=== PATIENT | male | born 1995 | race Caucasian/White ===

== ENCOUNTER 2016-04-14 23:02 | Emergency (ER) | payer MEDICAID ==
[~2016-04-14] VITALS: Wt 71.5 kg
[~2016-04-14 23:02] MED LIST: DOCU-144 PO; MAG-19 PO; OMEP20CA16 PO; OMEP40CA6 PO; POLY17PO6 PO; RANI150T9 PO; SUCR1TAB27 PO
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
--- NOTE | 2016-04-15 01:30 | RADRPT ---
PROCEDURE: Noncontrast CT Head. CLINICAL INDICATION: Pain. TECHNIQUE: Noncontrast CT of the head was obtained. The administered radiation dose was CTDI vol = 45 mGy, DLP = 720.2 mGy-cm. COMPARISON: No pertinent prior examinations were submitted for comparison. FINDINGS: The ventricles and sulci are within normal limits. There is no acute intracranial hemorrhage or ext ra-axial fluid collection. There is no mass effect. No midline shift is identified. There is no loss of rivera-white differentiation to suggest acute infarction. The orbits are within normal limits. The paranasal sinuses and mastoid air cells are without fluid. No destructive osseous lesion is identified. IMPRESSION: No acute findings. RPTAT: HIKT .Daniel Dillard MD, Date Time Electronically viewed and signed by .Daniel Dillard MD, on 04/15/2016 01:30 .T/
[2016-04-15 02:07] VITALS: BP 132/77; PULSE 78; RESP 20; TEMP 98
== END 2016-04-15 02:08 | disposition home or self-care (01) ==
LOC: FTE 23:02
DX: S09.90XA Unspecified injury of head, initial encounter (principal); R00.2 Palpitations; R51 Headache; Y04.0XXA Assault by unarmed brawl or fight, initial encounter; Z72.0 Tobacco use
CPT/HCPCS: 70450; 93005; Z7502

== ENCOUNTER 2016-05-14 14:55 | Emergency (ER) | payer MEDICAID ==
[~2016-05-14] VITALS: Ht 152.4 cm; Wt 74.5 kg
[2016-05-14 14:58] VITALS: Ht 152.4 cm; Wt 74.5 kg
[2016-05-14] MEDS ORDERED: TYL500 PO (16:56)
[2016-05-14] MEDS ORDERED: ALBU18HF INHALATION (16:56)
--- NOTE | 2016-05-14 16:58 | ERD ---
ER Documentation Chief Complaint Date/Time DATE: 05/14/16 TIME: 16:57 Chief Complaint HPI This 21-year-old male presents with a sensation of chest wall pain which is currently resolved. He also has a sensation of shortness of breath. An EEG report shows that he has been seen approximately 3 times at other hospitals for similar complaints of shortness of breath. Gives a history of asthma disease. He denies any current chest pain. He does have some mild problems with his breathing he states. Denies any fevers or recent URIs, vomiting, abdominal pain. Denies any calf swelling or additional symptoms. ROS All systems reviewed and are negative except as per history of present illness. Medications Home Meds Active Scripts Albuterol Sulfate* (Ventolin HFA*) 18 Gm Hfa.aer.ad, 2 PUFF INHALATION Q4H, #1 INHALER Prov:NERY POWELL MD 05/14/16 Acetaminophen* (Tylenol*) 500 Mg Tab, 500 MG PO Q4H Y for MILD PAIN LEVEL 1-3, # 20 TAB Prov:NERY POWELL MD 05/14/16 Omeprazole* (Omeprazole*) 40 Mg Capsule., 40 MG PO DAILY, #10 CAP Prov:MURIEL JUAREZ 03/14/16 Ranitidine Hcl* (Zantac*) 150 Mg Tablet, 150 MG PO BID, #60 TAB Prov:KIRK NARANJO 03/12/16 Sucralfate (Carafate) 1 Gm Tablet, 1 GM PO TID, #60 TAB Prov:KIRK NARANJO 03/12/16 Magaldrate/Simethicone* (Mylanta*) 355 Ml Susp, 30 ML PO QID Y for GASTROINTESTINAL UPSET, #1 BOTTLE Prov:ROSMERY HUTCHINS NP 02/21/16 Omeprazole* (Omeprazole*) 20 Mg Capsule., 20 MG PO DAILY, #30 Prov:ROSMERY HUTCHINS NP 02/21/16 Docusate Sodium* (Colace*) 100 Mg Capsule, 100 MG PO TID, #30 CAP Prov:ROSMERY HUTCHINS NP 02/21/16 Polyethylene Glycol* (Miralax*) 17 Gm Powd.pack, 17 GM PO DAILY, #7 Prov:ROSMERY HUTCHINS NP 02/21/16 Polyethylene Glycol* (Miralax*) 17 Gm Powd.pack, 17 GM PO DAILY, #7 Prov:JONNY KYA PA-C 02/01/16 Allergies Allergies: Coded Allergies: No Known Allergy (Unverified , 03/24/16) PMhx/Soc History of Surgery: No Anesthesia Reaction: No Hx Neurological Disorder: No Hx Respiratory Disorders: No Hx Cardiac Disorders: No Hx Psychiatric Problems: No Hx Miscellaneous Medical Probl: No Hx Alcohol Use: No Hx Substance Use: Yes (marijuana) Hx Tobacco Use: Yes Smoking Status: Unknown if ever smoked Physical Exam Vitals Vital Signs Date Time Temp Pulse Resp B/P Pulse Ox O2 Delivery O2 Flow Rate FiO2 05/14/16 14:58 97.2 76 20 134/75 99 Physical Exam Const: [] Alert, [id number], speaking complete sentences Head: Atraumatic Eyes: Normal Conjunctiva ENT: Normal External Ears, Nose and Mouth. Neck: Full range of motion..~ No meningismus. Resp: Clear to auscultation bilaterally. Slight forced wheeze. No rales or retractions. Cardio: Regular rate and rhythm, no murmurs Abd: Soft, non tender, non distended. Normal bowel sounds Skin: No petechiae or rashes Back: No midline or flank tenderness Ext: No cyanosis, or edema Neur: Awake and alert Psych: Normal Mood and Affect Procedures/MDM Patient presents with sensation of shortness of breath and mild wheezing on exam. Patient is otherwise healthy. Consideration of EKG and x-ray discussed with patient. 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 My suspicion for pneumonia, pulmonary embolism, abnormalities to be found on x-ray , or EKG are very low. Patient appears to have some mild wheezing. He will be treated empirically with Tylenol and Ventolin and further observation at home. The patient was stable with no new complaints during the ER course. Clinically, there is no current evidence to suggest meningitis, sepsis, acute abdomen, pneumonia, acute coronary syndrome, pulmonary embolism, or any other emergent condition appearing to require further evaluation or hospitalization. The patient should certainly return for any new or worsening symptoms per the aftercare instructions. They should otherwise follow-up with her primary care doctor for reevaluation this week. Departure Diagnosis: Primary Impression: Chest wall pain Condition: Stable Patient Instructions: Uri, Viral W/ Wheezing (Adult) Additional Instructions: Likely mild asthma from wheezing. Recheck for new or worsening symptoms or primary care doctor. NERY POWELL MD May 14, 2016 16:58
[2016-05-14 17:00] VITALS: RESP 18
== END 2016-05-14 17:13 | disposition home or self-care (01) ==
LOC: FTE 14:55
DX: R07.89 Other chest pain (principal); J45.901 Unspecified asthma with (acute) exacerbation
CPT/HCPCS: 99283

== ENCOUNTER 2018-04-26 00:21 | Emergency (ER) | payer MEDICAID, OTHER ==
[~2018-04-26] VITALS: Ht 180.3 cm; Wt 94.7 kg
[~2018-04-26 00:21] MED LIST changes: +ALBU18HF INHALATION; +RANI150T35 PO; -RANI150T9 PO; -SUCR1TAB27 PO; +SUCR1TAB35 PO; +TYL500 PO
[2018-04-26 00:35] VITALS: PULSE 80; Ht 180.3 cm; Wt 94.7 kg
--- NOTE | 2018-04-26 01:47 | ERD ---
ER Documentation Chief Complaint Chief Complaint CP, SOB x1 week, worse today. no cardiac hx HPI 23-year-old male who presents to emergency with chest pain and palpitations. The patient describes approximately 1 year of similar symptoms and he is followed up with a metal tank erector with negative workup including negative Holter negative echocardiogram. Remote drug abuse but none over the past 12 months. He states over the last 1 week he has had occasional shortness of breath and occasional palpitations and chest discomfort. He denies any chest pain currently. The patient was concerned and wanted further evaluation. He denies any pleuritic pain fevers chills or cough. ROS All systems reviewed and are negative except as per history of present illness. Medications Home Meds Active Scripts Ibuprofen* (Motrin*) 800 Mg Tab, 800 MG PO Q6H PRN for PAIN AND OR ELEVATED TEM P, #30 TAB Prov:KATERINE ASHLEY MD 04/26/18 Albuterol Sulfate* (Ventolin HFA*) 18 Gm Hfa.aer.ad, 2 PUFF INHALATION Q4H, #1 INHALER Prov:NERY POWELL MD 05/14/16 Acetaminophen* (Tylenol*) 500 Mg Tab, 500 MG PO Q4H PRN for MILD PAIN LEVEL 1-3, #20 TAB Prov:NERY POWELL MD 05/14/16 Omeprazole* (Omeprazole*) 40 Mg Capsule., 40 MG PO DAILY, #10 CAP Prov:MURIEL UJAREZ 03/14/16 Ranitidine Hcl* (Zantac*) 150 Mg Tablet, 150 MG PO BID, #60 TAB Prov:KIRK NARANJO 03/12/16 Sucralfate (Carafate) 1 Gm Tablet, 1 GM PO TID, #60 TAB Prov:KIRK NARANJO 03/12/16 Magaldrate/Simethicone* (Mylanta*) 355 Ml Susp, 30 ML PO QID PRN for GASTROINTESTINAL UPSET, #1 BOTTLE Prov:ROSMERY HUTCHINS NP 02/21/16 Omeprazole* (Omeprazole*) 20 Mg Capsule., 20 MG PO DAILY, #30 Prov:ROSMERY HUTCHINS NP 02/21/16 Docusate Sodium* (Colace*) 100 Mg Capsule, 100 MG PO TID, #30 CAP Prov:ROSMERY HUTCHINSAbdifatah FACILITIES ENGINEER 02/21/16 Polyethylene Glycol* (Miralax*) 17 Gm Powd.pack, 17 GM PO DAILY, #7 Prov:ROSMERY HUTCHINS. FACILITIES ENGINEER 02/21/16 Polyethylene Glycol* (Miralax*) 17 Gm Powd.pack, 17 GM PO DAILY, #7 Prov:JONNY KAY PA-C 02/01/16 Allergies Allergies: Coded Allergies: No Known Allergy (Unverified , 03/24/16) PMhx/Soc History of Surgery: No Anesthesia Reaction: No Hx Neurological Disorder: No Hx Respiratory Disorders: No Hx Cardiac Disorders: No Hx Psychiatric Problems: No Hx Miscellaneous Medical Probl: No Hx Alcohol Use: No Hx Substance Use: Yes (marijuana) Hx Tobacco Use: Yes FmHx Family History: No diabetes Physical Exam Vitals Vital Signs Date Temp Pulse Resp B/P (MAP) Pulse Ox O2 O2 Flow FiO2 Time Delivery Rate 04/26/18 97.4 80 16 145/80 98 00:35 (101) Physical Exam General: Well developed, well nourished, no acute distress Head: Normocephalic, atraumatic. Eyes: Pupils equally reactive, EOM intact ENT: Moist mucous membranes Neck: Supple, no lymphadenopathy Respiratory: Lungs clear bilaterally, no distress Cardiovascular: RRR, no murmurs, rubs, or gallops Abdominal: Soft, non-tender, non-distended, no peritoneal signs : Deferred MSK: No edema, no unilateral swelling, 5/5 strength Neurologic: Alert and oriented, moving all extremities, normal speech, no focal weakness, no cerebellar signs Skin: No rash Psych: Normal mood Result Diagram: 04/26/18 0146 Results 24 hrs Laboratory Tests Test 04/26/18 01:46 White Blood Count 9.6 10^3/ul Red Blood Count 4.83 10^6/ul Hemoglobin 14.1 g/dl Hematocrit 42.1 % Mean Corpuscular Volume 87.2 fl Mean Corpuscular Hemoglobin 29.2 pg Mean Corpuscular Hemoglobin Concent 33.5 g/dl Red Cell Distribution Width 12.9 % Platelet Count 245 10^3/UL Mean Platelet Volume 10.4 fl Immature Granulocytes % 0.800 % Neutrophils % 49.2 % Lymphocytes % 36.0 % Monocytes % 11.0 % Eosinophils % 2.1 % Basophils % 0.9 % Nucleated Red Blood Cells % 0.0 /100WBC Immature Granulocytes # 0.080 10^3/ul Neutrophils # 4.7 10^3/ul Lymphocytes # 3.5 10^3/ul Monocytes # 1.1 10^3/ul Eosinophils # 0.2 10^3/ul Basophils # 0.1 10^3/ul Nucleated Red Blood Cells # 0.0 10^3/ul Procedures/MDM EKG, MONITORS, & DIAGNOSTIC IMAGING: EKG: I reviewed and interpreted a 12-lead EKG. Rhythm: Normal sinus rhythm ST Changes: No contiguous ST segment elevations T waves: No contiguous T wave inversions Impression: No evidence of acute cardiac ischemia Chest x-ray: I reviewed and interpreted a 1 view of the chest Mediastinum: No enlargement Cardiac silhouette: No cardiomegaly Airspace: Clear lung barrera bilaterally without evidence of pneumothorax Bones: No evidence of fracture PROCEDURES: None LAB INTERPRETATION: * No evidence of anemia MEDICAL DECISION MAKING: The patient's history, physical exam and clinical presentation is nonspecific and likely inconsistent with cardiac etiology. The patient has had thorough cardiac evaluation and workup in the past. He has no risk factors for early cardiac disease And is not currently using sympathomimetic. For this reason, I do not believe he warrants troponin workup. Based on the patient's clinical exam and history and risk factors, I have a much lower clinical concern for pulmonary embolism, acute aortic dissection, pneumothorax, pneumonia, cardiac tamponade HEART Score: 0 MACE Rate: Less than 1.7% likely less than 0.9% Shared Decision Making: We had a conversation regarding risk stratification, MACE rate, and the risks, benefits, alternatives of disposition planning options. Disposition planning: No indication for troponin ER COURSE: The patient remains asymptomatic. No evidence of anemia, no evidence of pneumothorax. Again very low risk profile for cardiac etiology. No signs or symptoms concerning for dissection. This is a subacute issue and can be followed up with his metal tank erector. CONSULTATION: None DISPOSITION PLAN: The patient does not have an identifiable emergent medical condition that warrants inpatient hospitalization at this time. The patient is deemed safe for discharge with outpatient follow-up. We discussed follow up with the patient's primary care doctor within 24 to 48 hours as needed. We also discussed return to the emergency room for worsening symptoms or worsening condition. Outpatient referral: Primary metal tank erector Discharge Medications: Motrin Departure Diagnosis: Primary Impression: Chest pain Chest pain type: unspecified Qualified Codes: R07.9 - Chest pain, unspecified Additional Impression: Palpitation Condition: Stable KATERINE ASHLEY MD Apr 26, 2018 01:47
[2018-04-26] MEDS ORDERED: IBUP800T48 PO (01:55)
[2018-04-26 02:26] VITALS: BP 127/71; RESP 16
== END 2018-04-26 02:27 | disposition home or self-care (01) ==
LOC: E/R 00:21
DX: R07.9 Chest pain, unspecified (principal); R00.2 Palpitations; Z87.891 Personal history of nicotine dependence
CPT/HCPCS: 71045; 85025; 93005; Z7502